=== PATIENT | male | born 1990 | race Caucasian/White ===

== ENCOUNTER 2016-08-29 16:16 | Emergency (ER) | payer OTHER ==
[~2016-08-29] VITALS: Ht 182.9 cm; Wt 72.7 kg
[~2016-08-29 16:16] MED LIST: CARB1CAP8 PO
[2016-08-29 16:20] VITALS: TEMP 37.2; Ht 182.9 cm; Wt 72.7 kg
[2016-08-29] MEDS ORDERED: KETOROLAC TROMETHAMINE 30 MG/ML VIAL IV STA (16:31)
[2016-08-29] MEDS ORDERED: SODIUM CHLORIDE 0.9% 1000ML 1,000 ML IV STA (16:31)
[2016-08-29] MEDS ORDERED: PROCHLORPERAZINE 5 MG/ML 2 ML VIAL IV STA (16:31)
[2016-08-29] MEDS ORDERED: DiphenhydrAMINE HCL 50 MG/ML VIAL IV STA (16:31)
--- NOTE | 2016-08-29 17:27 | EMERGENCY ROOM VISIT NOTE ---
History Report prepared by Micibenoc: Saul Miller Under the Supervision of: Dr. Aftab Nye M.D. First contact with patient: 16:27 Chief Complaint: HEADACHE Stated Complaint: HEADACHE,DIZZY,FEELS SICK & LIKE PASSING OUT History of Present Illness The patient is a 25 year old male who presents to the Emergency Room with complaints of severe and intermittent headache starting today. He has a history of headaches and seizures. He was evaluated in the Emergency Room in May 2016 for a headache. He suspects that he had a seizure 3 days ago but is not sure. He has an appointment with his neurologist tomorrow. He denies any recent trauma, injuries, fevers, changes in vision, neck stiffness, abdominal pain, bowel/urine incontinence, or any other complaints. He denies any recent drug or alcohol use. Source of History: patient Onset: today Position: head Symptom Intensity: severe Timing: intermittent Associated Symptoms: No abdominal pain, No fevers Review of Systems See HPI for pertinent positives & negatives. A total of 10 systems reviewed and were otherwise negative. Past Medical & Surgical Medical Problems: (1) ATTN DEFICIT W HYPERACT (2) BIPOLAR DISORDER, UNSPECIFIED (3) Cerebral hemorrhage (4) Multiple intracranial cavernomas (5) PNEUMONIA, ORGANISM NOS (6) Seizure Family History FH: ADHD (attention deficit hyperactivity disorder) FH: bipolar disorder Social History Smoking Status: Never Smoker Alcohol Use: none Drug Use: none Marital Status: single Housing Status: lives alone, lives with roommate Occupation Status: unemployed Current/Historical Medications Scheduled Lamotrigine (Lamotrigine Er), 100 MG PO BID Allergies Coded Allergies: Sulfa Drugs (Verified Allergy, Unknown, 08/29/16) Physical Exam Vital Signs Date Time Temp Pulse Resp B/P Pulse Ox O2 Delivery O2 Flow Rate FiO2 08/29/16 17:28 84 20 116/78 95 08/29/16 16:20 37.2 82 18 121/74 95 Room Air Physical Exam GENERAL: Patient is well appearing and in mild distress. HEAD: No acute trauma, normocephalic atraumatic ENT: Mucous membranes moist, no nasal congestion. EYES: Equal/Reactive Bilaterally, No scleral icterus, Normal ROM NECK: No nuchal rigidity, no meningismus, trachea is midline, full ROM LUNGS: No dyspnea. Clear to auscultation and equal bilaterally. No wheeze, no rhonchi. HEART: Regular rate and rhythm. No murmurs, rubs, gallops appreciated. ABDOMEN: Soft, nontender, bowel sounds positive, no masses appreciated, no peritonitis. BACK: No midline tenderness, no CVA tenderness EXTREMITIES: Normal motion all extremities, no cyanosis, no edema. NEUROLOGIC: Awake, Alert, Oriented, no acute motor or sensory deficits, no focal weakness, cranial nerves grossly intact. SKIN: No rash, no jaundice, no diaphoresis. Medical Decision & Procedures Medications Administered Medications (Trade) Dose Ordered Sig/Elvia Route Start Time Stop Time Status Last Admin Dose Admin Diphenhydramine HCl (Benadryl Inj) 50 mg NOW STAT IV 08/29/16 16:31 08/29/16 16:33 DC 08/29/16 16:43 50 MG Ketorolac Tromethamine (Toradol Inj) 30 mg NOW STAT IV 08/29/16 16:31 08/29/16 16:33 DC 08/29/16 16:43 30 MG Prochlorperazine Edisylate 10 mg 10 mg NOW STAT IV 08/29/16 16:31 08/29/16 16:33 DC 08/29/16 16:42 10 MG Sodium Chloride (Nss 1000ml) 1,000 ml @ 999 mls/hr Q1H1M STAT IV 08/29/16 16:31 08/29/16 17:31 DC 08/29/16 16:43 999 MLS/HR ED Course 1627: The patient was evaluated in room C02B. A complete history and physical exam was performed. 1631: Sodium Chloride 1000 ml @ 999 mls/hr IV, Compazine Inj 10 mg IV, Toradol Inj 30 mg IV, Benadryl Inj 50 mg IV 1700: I reevaluated the patient who is feeling much better. 1730: Reevaluated the patient. Discussed results and discharge instructions: He verbalized understanding and agreement. He will follow up with neurology. The patient is ready for discharge. Medical Decision Differential: Headache, Migraine, Cluster Headache, Seizure, Meningitis, Sinusitis, CO exposure, ICH/SAH, Infectious, Tumor, Sinus Thrombosis, Arterial Dissection, amongst other pathologies entertained. 25 yr old male arrives with complaint of headache diffuse and similar to previous migraine headaches he has had. Following with neuro already and has appointment tomorrow. Given above with vast improvement in symptoms and wanting to go home and get some sleep. Stable and in no distress and happy. Comfortable with discharge. He is not septic nor having other issues. Discussed symptoms requiring return. Stressed importance of keeping tomorrows neuro appointment. Impression Primary Impression: Headache Additional Impression: Migraine Scribe Attestation The scribe's documentation has been prepared under my direction and personally reviewed by me in its entirety. I confirm that the note above accurately reflects all work, treatment, procedures, and medical decision making performed by me. Departure Information Dispostion Home / Self-Care Referrals Ximena Melvin M.D. (PCP) Patient Instructions ED Headache Migraine, My [facility] Additional Instructions Please keep your appointment tomorrow with your Neurologist. Return if worsening symptoms or other concerns. Problem Qualifiers Primary Impression: Headache Headache type: unspecified Headache chronicity pattern: acute headache Intractability: not intractable Qualified Codes: R51 - Headache Additional Impression: Migraine Migraine type: unspecified Status migrainosus presence: without status migrainosus Intractability: not intractable Qualified Codes: G43.909 - Migraine, unspecified, not intractable, without status migrainosus
[2016-08-29 17:28] VITALS: BP 116/78; PULSE 84; O2SAT 95
[2016-08-29] MEDS ORDERED: LAMO1TAB76 PO (17:33)
== END 2016-08-29 17:58 | disposition home or self-care (01) ==
LOC: C.EDB 16:17 → C.EDC 17:58
DX: G43.909 Migraine, unspecified, not intractable, without status migrainosus (principal); F31.9 Bipolar disorder, unspecified; F90.9 Attention-deficit hyperactivity disorder, unspecified type; Z88.2 Allergy status to sulfonamides; Z81.8 Family history of other mental and behavioral disorders

== ENCOUNTER → 2016-08-31 | Outpatient (CLI) | payer OTHER ==
[~2016-08-31] MED LIST changes: -CARB1CAP8 PO; +LAMO1TAB76 PO
[2016-08-31 13:22] LABS: BASO % 0.5 %; BASO ABS # 0.03 K/uL (0-0.2); COMPLETE YES; EOS % 1.1 %; HEMATOCRIT 40.4 % (42-52); IG% 0.2 %; LYMPH % 37.7 %; LYMPH ABS # 2.11 K/uL (1.2-3.4); MEAN CELL VOLUME 89.4 fL (80-100); MEAN CORPUSCULAR HEMOGLOBIN 32.3 pg (25-34); MEAN CORPUSCULAR HGB CONC 36.1 g/dl (32-36); MEAN PLATELET VOLUME 11.1 fL (7.4-10.4); MONO % 8.9 %; NEUT % 51.6 %; PLATELET COUNT 257 K/uL (130-400); RED BLOOD COUNT 4.52 M/uL (4.7-6.1); WHITE BLOOD COUNT 5.59 K/uL (4.8-10.8)
[2016-08-31 13:52] LABS: ALT/SGPT 23 U/L (12-78); AST/SGOT 10 U/L (15-37); BLOOD UREA NITROGEN 15 mg/dl (7-18); BUN/CREATININE RATIO 14.8 (10-20); CALCIUM 9.1 mg/dl (8.5-10.1); CARBON DIOXIDE 26 mmol/L (21-32); CHLORIDE 107 mmol/L (98-107); GLUCOSE 96 mg/dl (70-99); POTASSIUM 3.5 mmol/L (3.5-5.1); SODIUM 144 mmol/L (136-145)
[2016-08-31 13:55] LABS: ALB/GLOB RATIO 1.5 (0.9-2); ALKALINE PHOSPHATASE 58 U/L (45-117)
== END | disposition home or self-care (01) ==
LOC: C.LABBC 12:15
PROVIDERS: ATTEND Psychiatry & Neurology Neurology
DX: G40.209 Localization-related (focal) (partial) symptomatic epilepsy and epileptic syndromes with complex partial seizures, not intractable, without status epilepticus (principal); R51 Headache

== ENCOUNTER → 2016-12-13 | Outpatient (CLI) | payer OTHER ==
[~2016-12-13] MED LIST changes: +GADAVIST IV PRN
--- NOTE | 2016-12-13 15:27 | DIAGNOSTIC IMAGING REPORT ---
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 TECHNIQUE: Utilizing a 1.5 Suha magnet and dedicated coil, multiplanar, multiecho imaging of the brain was performed pre and postcontrast administration. IV administration of 8.5 mL of Gadavist contrast was uneventful. FINDINGS: Similar study is compared to the prior exams. Study overall is identical compared to leads to prior exams. Lesions involving the azeem, temporal lobe regions, deep white matter and right lateral occipital regions remain unchanged. The show no significant postcontrast enhancement. There are unchanged as compared to the prior study and are consistent with cavernous hemangiomas. No evidence for acute hemorrhage on the current evaluation. No midline shift. Diffusion-weighted images show no evidence for an acute ischemic insult. IMPRESSION: 1. Unchanged study compared to leads to prior MRI exams. 2. Multiple cavernous hemangiomas throughout the brainstem as well as cerebral hemispheres bilaterally. 3. No evidence for new or interval lesion. 4. No evidence for abnormal postcontrast enhancement Electronically signed by: Jose M Gaxiola M.D. 12/13/2016 3:26 PM Dictated Date/Time: 12/13/2016 3:20 PM
== END | disposition home or self-care (01) ==
PROVIDERS: ATTEND Psychiatry & Neurology Neurology
DX: D18.02 Hemangioma of intracranial structures (principal); G40.209 Localization-related (focal) (partial) symptomatic epilepsy and epileptic syndromes with complex partial seizures, not intractable, without status epilepticus; I61.9 Nontraumatic intracerebral hemorrhage, unspecified

== ENCOUNTER 2017-10-12 09:50 | Emergency (ER) | payer OTHER ==
[~2017-10-12] VITALS: Ht 182.9 cm; Wt 81.2 kg
[2017-10-12 09:50] VITALS: TEMP 37; Ht 182.9 cm; Wt 81.2 kg
[~2017-10-12 09:50] MED LIST changes: -GADAVIST IV PRN
[2017-10-12] MEDS ORDERED: LAMO200T35 PO (10:40)
[2017-10-12] MEDS ORDERED: LAMO1TAB77 PO (10:41)
[2017-10-12 11:02] LABS: BASO % 0.5 %; BASO ABS # 0.04 K/uL (0-0.2); EOS % 0.1 %; EOS ABS # 0.01 K/uL (0-0.5); HEMATOCRIT 46.6 % (42-52); HEMOGLOBIN 16.5 g/dL (14.0-18.0); IG# 0.03 K/uL (0.00-0.02); LYMPH % 45.2 %; LYMPH ABS # 3.61 K/uL (1.2-3.4); MEAN CELL VOLUME 93.2 fL (80-100); MEAN CORPUSCULAR HGB CONC 35.4 g/dl (32-36); MEAN PLATELET VOLUME 11.5 fL (7.4-10.4); MONO % 9.5 %; MONO ABS # 0.76 K/uL (0.11-0.59); NEUT % 44.3 %; NEUT ABS # 3.53 K/uL (1.4-6.5); PLATELET COUNT 294 K/uL (130-400); RED CELL DISTRIBUTION WIDTH CV 12.2 % (11.5-14.5); RED CELL DISTRIBUTION WIDTH SD 41.2 fL (36.4-46.3); WHITE BLOOD COUNT 7.98 K/uL (4.8-10.8)
[2017-10-12 11:11] LABS: ALBUMIN 4.4 gm/dl (3.4-5.0); CALCIUM 9.1 mg/dl (8.5-10.1); CREATININE 1.38 mg/dl (0.60-1.40); POTASSIUM 3.4 mmol/L (3.5-5.1)
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
[2017-10-12 12:20] VITALS: BP 107/64; PULSE 92; O2SAT 97
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
== END 2017-10-12 12:20 | disposition home or self-care (01) ==
LOC: EDBD 09:50 → C.EDB 09:51
DX: G40.909 Epilepsy, unspecified, not intractable, without status epilepticus (principal); Z86.59 Personal history of other mental and behavioral disorders

== ENCOUNTER → 2017-10-13 | Outpatient (CLI) | payer OTHER ==
[~2017-10-13] MED LIST changes: -LAMO1TAB76 PO; +LAMO1TAB77 PO
== END | disposition home or self-care (01) ==
LOC: C.LAB 16:15
PROVIDERS: ATTEND Psychiatry & Neurology Neurology
DX: G40.209 Localization-related (focal) (partial) symptomatic epilepsy and epileptic syndromes with complex partial seizures, not intractable, without status epilepticus (principal)